=== PATIENT | female | born 1960 | race Caucasian/White ===

== ENCOUNTER 2025-03-14 09:58 | Emergency (ER) | payer MEDICARE, SELFPAY ==
--- NOTE | ~2025-03-14 | XR_ITS ---
HISTORY: injury 3 week COMPARISON: None TECHNIQUE: 3 views of the right foot were performed FINDINGS: No acute fracture or dislocation is appreciated. Mild degenerative disease is noted. The base of the fifth metatarsal is intact. A small calcaneal spur is noted. Ossification of the insertion of the Achilles tendon is present No significant soft tissue swelling is present. IMPRESSION: Degenerative disease without acute fracture. Reviewed, dictated and finalized at location A.
[2025-03-14 10:08] VITALS: BP 150/85; PULSE 73; RESP 18; TEMP 36.3; O2SAT 100
--- OUTSIDE RECORDS SUMMARY | 2025-03-14 10:08 | XMS_ITS | Clinical Summary ---
Author Organization [facility] Address [address] [place] [address] Care Team Providers Care Training And Development Specialist Name Role Phone Mendez Astudillo MD Primary Care Provider + Allergies No known active allergies Medications hydroCHLOROthia zide (HYDRODIURIL) 25 mg tablet Take 1 tablet (25 mg total) by mouth daily Active potassium chloride ER 20 mEq CR tablet Take 1 tablet (20 mEq total) by mouth daily Active amLODIPine (NORVASC) 10 mg tablet Take 1 tablet (10 mg total) by mouth daily Active alendronate (FOSAMAX) 70 mg tablet Take 1 tablet (70 mg total) by mouth every 7 days Take in the morning with a full glass of water, on an empty stomach, and do not take anything else by mouth or lie down for the next 30 min. Active omeprazole 20 mg tablet,delayed release (DR/EC) Take by mouth Active atorvastatin (LIPITOR) 10 mg tablet Take 1 tablet (10 mg total) by mouth daily Active ergocalciferol (VITAMIN D) 50,000 unit capsule Take 1 capsule (50,000 Units total) by mouth once a week Active magnesium glycinate 100 mg tablet Take 350 mg by mouth daily Active Active Problems Problem Noted Date Diagnosed Date Personal history of colonic polyps 04/26/2023 Encounter for screening colonoscopy 04/26/2023 Encounters Date Type Department Care Team Description 12/24/2024 9:40 AM CDT Lab [facility] [address] [place] [address] from Last 3 Months Surgical History Surgery Date Site/Laterality Comments COLONOSCOPY 09/12/2013 - 10/12/2013 COLONOSCOPY 06/03/2023 ABDOMINAL HYSTERECTOMY Medical History Medical History Date Comments Hypertension Hyperlipidemia Family History Medical History Relation Name Comments Cirrhosis Maternal Grandmother Relation Name Status Comments Maternal Grandmother Social History Tobacco Use Types Packs/Day Years Used Date Smoking Tobacco: Never Smokeless Tobacco: Never Tobacco Cessation:Counseling Given: Not Answered Personal Safety Answer Date Recorded Getting School Help Needed Not on file 06/06 Comments Unknown Sex and Gender Information Value Date Recorded Sex Assigned at Not on file Legal Sex Female 2:51 AM DIRECTOR OF ADMISSIONS Gender Identity Not on file Sexual Orientation Not on file Obstetrics History Last Filed Vital Signs Vital Sign Reading Time Taken Comments Blood Pressure 138/75 06/03/2023 9:15 AM CDT Pulse 66 06/03/2023 9:15 AM CDT Temperature 36.8 C (98.3 F) 06/03/2023 9:15 AM CDT Respiratory Rate 16 06/03/2023 9:15 AM CDT Oxygen Saturation 98% 06/03/2023 9:15 AM CDT Inhaled Oxygen Concentration - - Weight 89.4 kg (197 lb) 06/03/2023 7:44 AM CDT Height 165.1 cm (5' 5) 06/03/2023 7:44 AM CDT Body Mass Index 32.78 06/03/2023 7:44 AM CDT Plan of Treatment Health Maintenance Due Date Last Done Comments Depression Screening 1960 Hepatitis C Screening 1960 DTaP/Tdap/Td Vaccine (1 - Tdap) 1969 Hepatitis B Screening 1976 Zoster Vaccine (1 of 2) 2008 Pneumococcal vaccine 65+ (2 of 2 - PPSV23) 07/05/2018 07/05/2017 Well Visit 65+ 2023 Fall Risk Assessment 06/03/2024 06/03/2023 Breast Cancer Screening-Mammogram 07/25/2024 07/25/2023, 07/25/2023, 09/14/2019, Additional history exists Influenza Vaccine (Season Ended) 2025 Osteoporosis Screening-Bone Density Scan 07/25/2025 07/25/2023, 07/25/2023, 09/14/2019, Additional history exists Colon Cancer Screening-Colonoscopy 06/03/2033 06/03/2023, 09/28/2013 Colon Cancer Screening-CT Colonography Discontinued 06/03/2023, 09/28/2013 Colon Cancer Screening-DNA Stool Discontinued 06/03/20, 09/28/2013 Colon Cancer Screening-FIT Discontinued 06/03/2023, Colon Cancer Screening-Sigmoidoscopy Discontinued 06/03/2023, 09/28/2013 Procedures Procedure Name Priority Date/Time Associated Diagnosis Comments EGFR Routine 12/24/2024 9:47 AM CDT URINALYSIS, MICROSCOPIC ONLY Routine 9:47 AM CDT DIFFERENTIAL AUTO Routine 12/24/2024 9:4 7 AM CDT CBC WITH AUTO DIFFERENTIAL Routine 12/24 9:47 AM CDT 1,25 DIHYDROXYCHOLECALCIFEROL Routine 9:47 AM CDT TSH Routine 12/24/2024 9:47 AM CDT MAGNESIUM Routine 12/24/2024 9:47 AM CDT LIPID PANEL Routine 12/24/2024 9:47 AM CDT COMPREHENSIVE METABOLIC PANEL Routine 9:47 AM CDT URINALYSIS AND REFLEX TO MICROSCOPIC AND CULTURE Routine 12/24/2024 9:47 AM CDT COLONOSCOPY 06/03/2023 7:28 AM CDT from Last 3 Months or Most Recently Relevant to Health Maintenance Results * eGFR (12/24/2024 9:47 AM CDT) eGFR >90 >=60 mL/min/1. 73 m2 Comment: Interpretive Data Reference Interval Normal >/= 90 mL/min/1.73m2 Mildly decreased* 60 - 89 mL/min/1.73m2 Mildly to moderately decreased 45 - 59 mL/min/1.73m2 Moderately to severely decreased 30 - 44 mL/min/1.73m2 Severely decreased 15 - 29 mL/min/1.73m2 Kidney Failure < 15 mL/min/1.73m2 *Relative to young adult level Estimated glomerular filtration rate is determined by the 2020 CKD-EPI equation recommended by the National Kidney Foundation (A Unifying Approach to GFR Estimation: Recommendations of the NKF-ASK Task Force on Reassessing the Inclusion of Race in Diagnosing Kidney Disease, JASN 2020). The CKD-EPI equation should not be used for patients with unstable renal function and has not been validated in children and those over 70. Current interpretive data was last reviewed 2021. Testing performed by: [address] [address] Blood 12/24/2024 9:47 AM CDT 12/24/2024 5:51 PM CDT us Mendez Astudillo MD LAB BLOOD ORDERABLES Fin al Result JESUS WEBBER (DOWELL) 1 [facility] [place] [address] * Differential, auto (12/24/2024 9:47 AM CDT) Neutrophil abs 2.92 1.50 - 6.50 K/cumm Comment:Testing performed by : [address] [address] Imm gran abs 0.06 0.00 - 0.10 K/cumm JESUS WEBBER (CHETAN) Comment:Testing performed by : [address] [address] Lymphocyte abs 2.14 0.80 - 3.30 K/cumm JESUS WEBBER (CHETAN) Comment:Testing performed by : [address], [address] Monocyte abs 0.56 0.20 - 0.80 K/cumm JESUS WEBBER (DOWELL) Comment:Testing performed by : [address], [place]., [address] Eosinophil abs 0.13 0.00 - 0.50 K/cumm [facility] ([place]) Comment:Testing performed by : [address] [address] Basophil abs 0.02 0.00 - 0.10 K/cumm [facility] ([place]) Comment:Testing performed by : [address] [address] Neutrophil pct 50.2 % [facility] ([place]) Comment: Interpretive Data Percent cell count reference ranges are not reported, since discordance with absolute values may lead to misinterpretation of CBC data. Current Interpretive Data was last revised on 2017. Testing performed by: [address] [address] Imm gran pct 1.0 % [facility] ([place]) Comment: Interpretive Data Percent cell count reference ranges are not reported, since discordance with absolute values may lead to misinterpretation of CBC data. Current Interpretive Data was last revised on 2017. Testing performed by: [address] [address] Lymphocyte pct 36.7 % [facility] ([place]) Comment: Interpretive Data Percent cell count reference ranges are not reported, since discordance with absolute values may lead to misinterpretation of CBC data. Current Interpretive Data was last revised on 2017. Testing performed by: [address] [address] Monocyte pct 9.6 % [facility] ([place]) Comment: Interpretive Data Percent cell count reference ranges are not reported, since discordance with absolute values may lead to misinterpretation of CBC data. Current Interpretive Data was last revised on 2017. Testing performed by: [address] [address] Eosinophil pct 2.2 % [facility] ([place]) Comment: Interpretive Data Percent cell count reference ranges are not reported, since discordance with absolute values may lead to misinterpretation of CBC data. Current Interpretive Data was last revised on 2017. Testing performed by: [address] [address] Basophil pct 0.3 % JESUS WEBBER (CHETAN) Comment: Interpretive Data Percent cell count reference ranges are not reported, since discordance with absolute values may lead to misinterpretation of CBC data. Current Interpretive Data was last revised on 2017. Testing performed by: [facility], [address] [place] [address]., [address] Blood 12/24/2024 9:47 AM CDT 12/24/2024 1:51 PM CDT us Mendez Astudillo MD LAB BLOOD ORDERABLES Fin al Result JESUS WEBBER (CHETAN) 1 [facility] Department [place] [address] * (ABNORMAL) Urinalysis reflex to microscopic and culture Urine, clean voided (12/24/2024 9:47 AM CDT) Color, ur Yellow Yellow Comment:Testing performed by : [address] [address] Clarity, ur Clear Clear JESUS VASQUEZ (DOWELL) Comment:Testing performed by : [address] [address] Specific gravity, ur 1.011 1.003 - 1.030 JESUS WEBBER (CHETAN) Comment:Testing performed by : [address] [address] pH, urine 7.0 JESUS WEBBER (CHETAN) Comment: Interpretive Data U rine pH is affected by diet, medications, systemic acid-base disturbances, and renal tubular function. pH may affect urinary stone formation. For example, urine pH below 6.0 may help reduce the tendency for calcium phosphate stones and pH greater than 6.0 may reduce the tendency for uric acid stone formation. Source: [facility] [place] Current Interpretive Data was last revised on 2017 Testing performed by: [address] [address] Protein, ur ql Negative Negative LIDIANE R ABKAR (CHETAN) Comment:Testing performed by : [address] [address] Glucose, ur ql Negative Negative CERNE R AKBAR ([place]) Comment:Testing performed by : [facility], [address] [place] [address]., [address] Ketones, ur Negative Negative CERNER A (CHETAN) Comment:Testing performed by : [facility], [address] [place] [address]., [address] Bilirubin, ur Negative Negative [facility] ([place]) Comment:Testing performed by : [facility], [address] [place] [address]., [address] Blood, ur 2+(A) Negative [facility] ([place]) Comment:Testing performed by : [address] [address] Urobilinogen, ur <2.0 <2.0 mg/dL JESUS WEBBER (CHETAN) Comment:Testing performed by : [facility], [address] [place] [address], [address] Nitrite, ur Negative Negative JESUS A (CHETAN) Comment:Testing performed by : [address], [address] Leukocyte esterase, ur Negative Negative JESUS WEBBER (CHETAN) Comment:Testing performed by : [address], [address] UA reflex comment Reflex to microscopic UA will be performed. JESUS WEBBER (CHETAN) Comment:Testing performed by : [address], [address] Urine, clean voided 12/24/2024 9:47 AM CDT 12/24/2024 1:51 PM CDT us Mendez Astudillo MD LAB MICROBIOLOGY - GENER AL ORDERABLES Final Result JESUS WEBBER ([place]TAN) 1 [facility] [place] [address] * (ABNORMAL) CBC with auto differential (12/24/2024 9:47 AM CDT) WBC 5.83 3.80 - 9.90 K/cumm Comment:Testing performed by : [address], [address] Hgb 15.0 11.9 - 15.5 g/dL [facility] ([place]) Comment:Testing performed by : [address], [address] Hct 46.6(H) 35.6 - 45.5 % [facility] ([place]) Comment:Testing performed by : [address], [address] Plt 263 150 - 400 K/cumm [facility] ([place]) Comment:Testing performed by : [address], [address] MPV 10.5 9.1 - 12.3 fL [facility] ([place]) Comment:Testing performed by : [address], [address] RBC 5.20 3.90 - 5.20 M/cumm [facility] ([place]) Comment:Testing performed by : [address], [address] MCV 89.6 81.3 - 96.4 fL [facility] ([place]) Comment:Testing performed by : [address], [address] MCH 28.8 27.1 - 33.3 pg [facility] ([place]) Comment:Testing performed by : [address], [address] MCHC 32.2(L) 32.3 - 35.7 g/dL [facility] ([place]) Comment:Testing performed by : [address], [address] RDW CV 12.5 11.1 - 14.9 % [facility] ([place]) Comment:Testing performed by : [address], [address] RDW SD 41.0 35.7 - 48.1 fL [facility] ([place]) Comment:Testing performed by : [address], [address] NRBC abs 0.00 0.00 - 0.01 K/cumm [facility] ([place]) Comment:Testing performed by : [address], [address] Blood 12/24/2024 9:47 AM CDT 12/24/2024 1:51 PM CDT Mendez Astudillo MD LAB BLOOD ORDERABLES Fin al Result Performing Organization Address [facility] de Phone Number JESUS WEBBER (DOWELL) [address] [facility] [place] [address] * 1,25 Dihydroxycholecalciferol (12/24/2024 9:47 AM CDT) Pathologist [facility] 1-25-di-OH Vit D 25 18 - 78 pg/mL [place] [facility] Comment: ADDITIONAL INFORMATION This test was developed and its performance characteristics determined by [facility] in a manner consistent with CLIA requirements. This test has not been cleared or approved by the U.S. Food and Drug Administration. Test Performed by: [facility] - [address] [address] Paginator: Toña Lovelace Ph.D.; CLIA# [id number] Testing performed by: [facility], [address] [place] [address]., [address] Blood 12/24/2024 9:47 AM CDT 12/24/2024 1:51 PM CDT Mendez Astudillo MD LAB BLOOD ORDERABLES Fin al Result Performing Organization Address City/[facility] Co de Phone Number JESUS WEBBER (DOWELL) [address] [facility] [place] [address] [place] ref [facility] * (ABNORMAL) Urinalysis, microscopic only (12/24/2024 9:47 AM CDT) [facility] WBC, ur 0-5 0 - 5 /HPF Comment:Testing performed by : [facility], [address] [place] [address]., [address] RBC, ur 21-50(A) 0 - 2 /HPF JESUS WEBBER (DOWELL) Comment:Testing performed by : [facility] [address] [place] [address]., [address] Epithelial cells, squamous, ur 1-5 0 - 5 /HPF JESUS WEBBER (CHETAN) Comment:Testing performed by : [facility], [address] [place] [address]., [address] Mucous, ur Present(A) JESUS Natarajan (CHETAN) Comment:Testing performed by : [facility], [address] [place] [address], [address] Culture Reflex Comment Reflex conditions for urine culture (WBC >10) not met. JESUS WEBBER (CHETAN) Comment:Testing performed by : [facility], [address] [place] [address], [address] Urine, clean voided 12/24/2024 9:47 AM CDT 12/24/2024 1:51 PM CDT Mendez Astudillo MD LAB URINE ORDERABLES Fin al Result Performing Organization Address City/[facility]/ZIP Co de Phone Number JESUS WEBBER (DOWELL) 1 [facility] [place] [address] * TSH (12/24/2024 9:47 AM CDT) Thyroid Stimulating Hormone 2.29 0.30 - 4.20 mcIUnit/mL Comment:Testing performed by : [address], [address] Blood 12/24/2024 9:47 AM CDT 12/24/2024 1:51 PM CDT Mendez Astudillo MD LAB BLOOD ORDERABLES Fin al Result JESUS WEBBER (DOWELL) 1 [facility] [place] [address] * Magnesium (12/24/2024 9:47 AM CDT) Magnesium 2.3 1.4 - 2.5 mg/dL Comment:Testing performed by : [address], [address] Blood 12/24/2024 9:47 AM CDT 12/24/2024 1:51 PM CDT us Mendez Astudillo MD LAB BLOOD ORDERABLES Fin al Result JESUS AKBAR (CHETAN) 1 [facility] [place] [address] * (ABNORMAL) Lipid panel (12/24/2024 9:47 AM CDT) Cholesterol 223(H) 30 - 199 mg/dL Comment: Interpretive Data Ages < or = 19 years Acceptable: <170 mg/dL Borderline high: 170-199 mg/dL High: >or= 200 mg/dL Ages > or = 20 years Desirable: <200 mg/dL Borderline high: 200-239 mg/dL High: >or= 240 mg/dL Literature References: 1. Expert Panel on Integrated Guidelines for Cardiovascular Health and Risk Reduction in Children and Adolescents. Pediatrics 2011;128:S213 2. NCEP Expert Panel. Circulation 2004;110:227 Current Interpretive Data was last revised on 2018. Testing performed by: [facility], [address] [place] [address]., [address] Triglycerides 93 <=149 mg/dL JESUS WEBBER (CHETAN) Comment: Interpretive Data Ages < or = 9 years Acceptable: <75 mg/dL Borderline high: 75-99 mg/dL High: >or= 100 mg/dL Ages 10 to 20 years Acceptable: <90 mg/dL Borderline high: 90-129 mg/dL High: >or= 130 mg/dL Ages > or = 20 years Desirable: <150 mg/dL Borderline high: 150-199 mg/dL High: 200-499 mg/dL Very high: >or= 499 mg/dL Literature References: 1. Expert Panel on Integrated Guidelines for Cardiovascular Health and Risk Reduction in Children and Adolescents. Pediatrics 2011;128:S213 2. NCEP Expert Panel. Circulation 2004;110:227 Current Interpretive Data was last revised on 2018. Testing performed by: [facility], [address] [place] [address]., [address] HDL 70 >=40 mg/dL JESUS WEBBER (CHETAN) Comment: Interpretive Data Ages < or = 19 years Acceptable: >45 mg/dL Borderline low: 40-45 mg/dL Low: <40 mg/dL Ages > or = 20 years Desirable: >or= 60 mg/dL Low: <40 mg/dL Literature References: 1. Expert Panel on Integrated Guidelines for Cardiovascular Health and Risk Reduction in Children and Adolescents. Pediatrics 2011;128:S213 2. NCEP Expert Panel. Circulation 2004;110:227 Current Interpretive Data was last revised on 2018. Testing performed by: [facility], [address] [place] [address]., [address] LDL, calculated 137(H) <=129 mg/dL JESUS WEBBER (CHETAN) Comment: Interpretive Data Ages < or = 19 years Acceptable: <110 mg/dL Borderline high: 110-129 mg/dL High: >or= 130 mg/dL Ages > or = 20 years Optimal: <100 mg/dL Near optimal: 100-129 mg/dL Borderline high: 130-159 mg/dL High: >160 mg/dL Calculated using the Tyrel LDL-C estimating equation. This equation was implemented on 2024. Prior to this date LDL-C was estimated using the Friedewald equation. Literature References: 1. Expert Panel on Integrated Guidelines for Cardiovascular Health and Risk Reduction in Children and Adolescents. Pediatrics 2011;128:S213 2. NCEP Expert Panel. Circulation 2004;110:227 3. Tyrel Whiting et al. FERN Cardiol. 2020 January 10;5(5):540-548. doi: 10.1001/jamacardio.2020.0013 Current Interpretive Data was last revised on 2024. Testing performed by: [facility], [address] [place] [address]., [address] Non-HDL Cholesterol 153 mg/dL JESUS WEBBER (CHETAN) Comment: Interpretive Data Ages < or = 19 years Acceptable: <120 mg/dL Borderline high: 120-144 mg/dL High: >145 mg/dL Ages > or = 20 years When triglycerides are >200 mg/dL, Non-HDL cholesterol is a secondary target of therapy with treatment goals that are 30 mg/dL greater than the LDL cholesterol target. Literature References: 1. Expert Panel on Integrated Guidelines for Cardiovascular Health and Risk Reduction in Children and Adolescents. Pediatrics 2011;128:S213 2. NCEP Expert Panel. Circulation 2004;110:227 Current Interpretive Data was last revised on 2018. Testing performed by: [facility], [address] [place] [address]., [address] Chol/HDL ratio 3 [facility] ([place]) Comment:Testing performed by : [address] [address] Blood 12/24/2024 9:47 AM CDT 12/24/2024 1:51 PM CDT us Mendez Astudillo MD LAB BLOOD ORDERABLES Fin al Result JESUS WEBBER (CHETAN) 1 [facility] [place] [address] * Comprehensive metabolic panel (12/24/2024 9:47 AM CDT) Sodium 142 135 - 145 mmol/L Comment:Testing performed by : [address], [address] Potassium, pl 4.0 3.3 - 4.9 mmol/L [facility] ([place]) Comment:Testing performed by : [address], [address] Chloride 104 97 - 110 mmol/L [facility] ([place]) Comment:Testing performed by : [address], [address] CO2 27 22 - 32 mmol/L [facility] ([place]) Comment:Testing performed by : [address], [address] Anion gap 11 2 - 15 mmol/L [facility] ([place]) Comment:Testing performed by : [address], [address] BUN 12 6 - 25 mg/dL [facility] ([place]) Comment:Testing performed by : [address], [address] Creatinine 0.60 0.60 - 1.10 mg/dL [facility] ([place]) Comment:Testing performed by : [facility], [address], [place]., [address] Glucose 88 70 - 199 mg/dL [facility] ([place]) Comment: Interpretive Data Fasting glucose >/= 126 mg/dl is diagnostic for diabetes. Fasting is defined as no caloric intake for at least 8 hours. Fasting glucose between 100 mg/dl to 125 mg/dl is diagnostic of prediabetes. In a patient with classic symptoms of hyperglycemia or hyperglycemic crisis, a random glucose >/= 200 mg/dl is diagnostic for diabetes. In the absence of unequivocal hyperglycemia, results should be confirmed by repeat testing. The classification and Diagnosis of Diabetes Diabetes Care 2021; 46: S19-S40. Current interpretive data was last revised 2022. Testing performed by: [facility], [address] [place] [address], [address] Calcium 9.4 8.5 - 10.3 mg/dL [facility] ([place]) Comment:Testing performed by : [address], [address] Bilirubin, total 0.3 0.1 - 1.2 mg/dL [facility] ([place]) Comment:Testing performed by : [address], [address] Protein, pl 7.4 6.5 - 8.5 g/dL [facility] ([place]) Comment:Testing performed by : [address], [address] Albumin 4.3 3.5 - 5.0 g/dL [facility] ([place]) Comment:Testing performed by : [address], [address] Alk phos 62 40 - 130 Units/L [facility] ([place]) Comment:Testing performed by : [address], [address] ALT 20 7 - 45 Units/L [facility] ([place]) Comment:Testing performed by : [address], [address] AST 29 10 - 45 Units/L [facility] ([place]) Comment:Testing performed by : [address], [address] Blood 12/24/2024 9:47 AM CDT 12/24/2024 1:51 PM CDT us Mendez Astudillo MD LAB BLOOD ORDERABLES Fin al Result JESUS WEBBER CHE[place]) 1 [facility] [place] [address] * COLONOSCOPY (06/03/2023 7:28 AM CDT) Anatomical Region Laterality Modality Other Narrative Procedure Note Arnel Lopez MD - 06/03/2023 7:28 AM CDT [facility] Patient Name: Ivelisse Rahman Procedure Date: 06/03/2023 7:28 AM Date of : 1960 Admit Type: Outpatient Age: 63 Gender: Female Attending MD: Arnel Lopez M.D. Room: [facility] ENDOSCOPY ROOM 2 Note Status: Finalized Patient Profile: Refer to note in patient chart for documentation of history and physical. Procedure: Colonoscopy Indications: High risk colon cancer surveillance: Personalhistory of colonic polyps, Last colonoscopy: September 2013 Referring MD: Mendez Astudillo M.D. Providers: Arnel Lopez M.D. Impression: - Hemorrhoids found on perianal exam. - Diverticulosis in the sigmoid colon. - The examination was otherwise normal. - No specimens collected. Recommendation: - Discharge patient to home. - Resume previous diet. - Continue present medications. - Repeat colonoscopy in 5 years for surveillance. - Return to primary care physician as previously scheduled. Medicines: Propofol per Anesthesia Complications: No immediate complications. Estimated Blood Loss: Estimated blood loss: none. Procedure: Pre-Anesthesia Assessment: - This assessment was completed [Time ofAssessment] prior to the administration of sedation. The benefits, risks and alternatives of theprocedure and sedation were discussed and informed consentwas obtained. All questions were answered. Please referto the signed informed consent document in the medical record. The bowel preparation used was Miralax via single dose instruction. The bowel preparation used was bisacodyl tablets via single dose instruction.The scope was passed under direct vision. TheColonoscope [id number] was introduced through the anus and advanced to the the cecum, identified by appendiceal orifice and ileocecal valve. The colonoscopy was performed without difficulty. The patient tolerated the procedure well. The qualityof the bowel preparation was good. The ileocecalvalve, appendiceal orifice, and rectum werephotographed. Findings: Hemorrhoids were found on perianal exam. Multiple small and large-mouthed diverticula were found in thesigmoid colon. The exam was otherwise without abnormality. Electronically signed by Arnel Lopez M.D. Arnel Lopez M.D. 06/03/2023 8:46:44 AM Number of Addenda: 0 Note Initiated On: 06/03/2023 7:28 AM Procedure Code(s): --- Professional --- G0105, Colorectal cancer screening; colonoscopy on individual at high risk --- Technical --- G0105, Colorectal cancer screening; colonoscopy on individual at high risk Diagnosis Code(s): --- Professional --- K57.30, Diverticulosis of large intestine without perforation orabscess without bleeding K64.9, Unspecified hemorrhoids Z86.010, Personal history of colonic polyps --- Technical --- K57.30, Diverticulosis of large intestine without perforation orabscess without bleeding K64.9, Unspecified hemorrhoids Z86.010, Personal history of colonic polyps CPT copyright 2020 [employer]. All rights reserved. The codes documented in this report are preliminary and upon civil engineering professor reviewmay be revised to meet current compliance requirements. Recognized by the [employer] [place] [employer] for promoting quality in endoscopy Arnel Lopez MD ENDOSCOPY PROCEDURES Final Re sult from Last 3 Months or Most Recently Relevant to Health Maintenance Insurance [facility] [employer] Advance Directives For more information, please contact: [phone] * Full Code (Latest Code Status on File) Date Activated Date Inactivated Comments 06/03/2023 7:30 AM 06/03/2023 1:39 PM * Full Code Date Activated Date Inactivated Comments 06/03/2023 7:30 AM 06/03/2023 7:30 AM Care Teams Training And Development Specialist Relationship Specialty Start [place] [id number] [facility] [place] [address] PCP - General 02/25/17
--- OUTSIDE RECORDS SUMMARY | 2025-03-14 10:09 | XMS_ITS | Clinical Summary ---
Author Organization [facility] Address [address] [place] [address] Phone Care Team Providers Care Clerk Manager Name Role Phone Mendez Interiano MD Primary Care Provider [phone] Allergies No known active allergies Medications alendronate (FOSAMAX) 70 MG Tablet TAKE 1 TABLET BY MOUTH ONCE WEEKLY 02/24/2023 Active ergocalciferol (VITAMIN D) 65437 UNIT Capsule TAKE 1 CAPSULE BY MOUTH EVERY 1 WEEK 03/28/2023 Active potassium chloride SA (KLORCON M) 20 MEQ Tablet Controlled Release TAKE 2 TABLETS BY MOUTH TWICE DAILY 02/24/2023 Active omeprazole (PriLOSEC) 20 MG CAPSULE DELAYED RELEASE Take 20 mg by mouth daily. 03/28/2023 Active atorvastatin (LIPITOR) 10 MG Tablet Take 10 mg by mouth daily. 03/28/2023 Active amLODIPine (NORVASC) 10 MG Tablet Take 10 mg by mouth daily. 03/28/2023 Active Encounters Date Type Department Care Team Description 03/07/2025 1:08 PM CDT - 03/07/2025 4:35 PM CDT [facility] [address] [place] [address] Diogo Ames, PAC Chest pain Discharge Disposition: Discharged to home or Selfcare 03/07/2025 Travel 12/27/2024 Transcribe Orders [facility] [address] [place] [address] [place] [address] Joann Mac MD Visit for screening mammogram (Primary Dx) from Last 3 Months Social History Tobacco Use Types Packs/Day Years Used Date Smoking Tobacco: Former Cigarettes Q uit: 1998 Smokeless Tobacco: Never Tobacco Cessation:Counseling Given: Not Answered Alcohol Use Standard Drinks/Week Comments Not Currently 0 (1 standard drink = 0.6 oz pur e alcohol) Comments No Sex and Gender Information Value Date Recorded Sex Assigned at Female 04/25/2023 2:29 PM CDT Legal Sex Female 11:46 PM CDT Gender Identity Female 04/25/2023 2:29 PM CDT Sexual Orientation Not on file Last Filed Vital Signs Vital Sign Reading Time Taken Comments Blood Pressure 139/76 03/07/2025 4:15 PM CDT Pulse 65 03/07/2025 4:30 PM CDT Temperature 37 C (98.6 F) 03/07/2025 1:22 PM CDT Respiratory Rate 17 03/07/2025 4:30 PM CDT Oxygen Saturation 97% 03/07/2025 4:30 PM CDT Inhaled Oxygen Concentration - - Weight 83.9 kg (185 lb) 03/07/2025 1:22 PM CDT Height 167.6 cm (5' 6) 03/07/2025 1:22 PM CDT Body Mass Index 29.86 03/07/2025 1:22 PM CDT Plan of Treatment Health Maintenance Due Date Last Done Comments Hepatitis C Virus (HCV) Screening 1960 TdaP Immunization 1960 Cologuard 2003 Immunochemical Fecal Occult Blood 2003 SARS-COV-2 Immunization ( season) 2024 Mammogram 07/25/2024 07/25/2023, 11/2019, 09/03/2016, Additional history exists Influenza Immunization (#1) 2025 DEXA Bone Density 07/25/2025 07/25/2023, 09/14/2019 Respiratory Syncytial Virus (RSV) Immunization (Adult) (1 - 1-dose 75+ series) 2033 Colonoscopy 06/03/2033 06/03/2023 Colorectal Cancer Screening 06/03/2033 Pneumococcal Immunization (50+ years) Completed 07/05/2023, 07/05/2017 Pneumococcal Immunization Combined Discontinued 07/05/2023, 07/05/2017 Zoster Immunization Completed 09/02/2023, Hepatitis B Immunization Aged Out No longer eligible based on patient's age to complete this topic Human Papillomavirus (HPV) Immunization Aged Out No longer eligible based on patient's age to complete this topic Meningococcal Immunization (ACWY) Aged Out No longer eligible based on patient's age to complete this topic Rotavirus Immunization Aged Out No lo nger eligible based on patient's age to complete this topic Procedures Procedure Name Priority Date/Time Associated Diagnosis Comments TROPONIN I, HIGH SENSITIVITY (HSTRP) STAT 03/07/2025 3:42 PM CDT URINALYSIS REFLEX IF INDICATED BY ABNORMAL RESULTS STAT 03/07/2025 2:22 PM CDT XR CHEST 2 VIEWS STAT 03/07/2025 1:56 PM CDT GOLD TOP TUBE STAT 03/07/2025 1:34 PM CDT CBC WITH AUTO DIFFERENTIAL STAT 03/07/2025 1:34 PM CDT EXTRA TUBES STAT 03/07/2025 1:34 PM CDT APTT (PTT) STAT 03/07/2025 1:34 PM CDT PROTIME (PT) (PROTHROMBIN TIME) STAT 03/07/2025 1:34 PM CDT N-TERMINAL- PRO B TYPE NATRIURETIC PEPTIDE STAT 03/07/2025 1:34 PM CDT TROPONIN I, HIGH SENSITIVITY (HSTRP) STAT 03/07/2025 1:34 PM CDT MAGNESIUM (MG) STAT 03/07/2025 1:34 PM CDT CMP (COMPREHENSIVE METABOLIC PANEL) STAT 03/07/2025 1:34 PM CDT COMPLETE BLOOD COUNT (CBC) WITH DIFF STAT 03/07/2025 1:34 PM CDT EKG 12 LEAD STAT 03/07/2025 1:09 PM CDT EKG SCAN 03/07/2025 12:00 AM CDT [facility] BONE DENSITOMETRY AXIAL SKELETON Routine 07/25/2023 9:31 AM SENIOR ATTORNEY Osteoporosis, unspecified osteoporosis type, unspecified pathological fracture presence [facility] SCREENING BILATERAL DIGITAL W CAD W MAIRA Routine 07/25/2023 9:12 AM SENIOR ATTORNEY Encounter for screening mammogram for malignant neoplasm of breast from Last 3 Months or Most Recently Relevant to Health Maintenance Results * TROPONIN I, HIGH SENSITIVITY (HSTRP) (03/07/2025 3:42 PM CDT) Only the most recent of2 resultswithin the time period is included. [facility] TROPONIN I, HIGH SENSITIVITY- ARELLANO <3 <=14 ng/L 03/07/2025 4:06 PM CDT [facility] Comment: High-sensitivity troponin I results are reported in ng/L making the result appear to be 1,000 times higher than the contemporary troponin I value which is reported in ng/ml. Results from [place]. Blood Venipuncture / Unknown 03/07/2025 3:42 PM CDT 03/07/2025 3:42 PM CDT us Diogo Ames PAC CHEMISTRY ORDERABLES Final Result [facility] [address] [place] [address] * (ABNORMAL) Urinalysis w/ Reflex (03/07/2025 2:22 PM CDT) [facility] SPECIFIC GRAVITY 1.005 1.003 - 1.030 03/07/2025 3:10 PM CDT [facility] URINE PH 6.0 5.0 - 9.0 03/07/2025 3:10 PM CDT [facility] WBC ESTERASE 25 /ul(A) Negative 03/07/2025 3:10 PM CDT [facility] NITRITE Negative Negative 03/07/2025 3:10 PM CDT [facility] PROTEIN, RANDOM URINE Negative Negative 03/07/2025 3:10 PM CDT [facility] URINE GLUCOSE, QUAL Negative Negative 03/07/2025 3:10 PM CDT [facility] URINE KETONES Negative Negative 03/07/2025 3:10 PM CDT [facility] UROBILINOGEN Normal Normal mg/dL 03/07/2025 3:10 PM CDT [facility] URINE BLOOD Negative Negative robb/ul 03/07/2025 3:10 PM CDT [facility] URINALYSIS COLOR Yellow 03/07/20 3:10 PM CDT [facility] URINALYSIS CLARITY Clear 03/07/2025 3:10 PM CDT [facility] WBC (Urine) 0-5 Negative, 0-5 /hpf 03/07/2025 3:10 PM CDT [facility] URINE RBC'S 0-2 Negative, 0-2 /hpf 03/07/2025 3:10 PM CDT [facility] EPITHELIAL CELLS Occasional /lpf 03/07/20 3:10 PM CDT [facility] BACTERIA, URINE Negative Negative /hpf 03/07/2025 3:10 PM CDT [facility] Urine URINE SPECIMEN / Unknown Non-Phlebotomy Collection / Unknown 03/07/2025 2:22 PM CDT 03/07/2025 2:30 PM CDT Narrative [facility] - 03/07/2025 3:10 PM CDT Few Renal epithelial cells present Diogo Ames PAC URINE ORDERABLES Fin al Result [facility] [address] [facility] [place] [address] * XR CHEST 2 VIEWS (03/07/2025 1:56 PM CDT) Anatomical Region Laterality Modality Chest N/A Digital Radiogra phy 03/07/2025 2:14 PM CDT Impressions 03/07/2025 2:17 PM CDT IMPRESSION: 1. Opacity at medial right lung base, thought to be right middle lobe, appears similar to that seen on the prior study and likely represents scarring; however, 3 month follow-up PA and lateral chest radiographs are recommended for additional evaluation. Of course, CT is another option. 2. Otherwise, no focal infiltrates or effusions. 3. Heart upper limits of normal in size. Narrative 03/07/2025 2:17 PM CDT EXAM DESCRIPTION: XR CHEST 2 VIEWS REASON FOR STUDY: CP- shortness of breath, left shoulder pain, shooting pain into left side of neck today which have all now resolved- HX HTN, ex smoker TECHNIQUE: PA and lateral radiographic view(s) of the chest. COMPARISON: April 25, 2023 FINDINGS: LUNGS: Opacity at medial right lung base, thought to be right middle lobe, appears similar to that seen on the prior study and likely represents scarring; however, 3 month follow-up PA and lateral chest radiographs are recommended for additional evaluation. Otherwise, no focal opacity, pleural effusion, or pneumothorax. HEART/MEDIASTINUM: Heart is upper limits of normal in size. Thoracic aorta is mildly tortuous. LINES/TUBES: None. BONES: Mild multilevel thoracic spondylosis. No acute osseous abnormality. THIS IS AN ELECTRONICALLY VERIFIED FINAL REPORT 03/07/2025 2:14 PM - Electronically signed by Cristian Oliveira M.D. RB: JOSE Report ID: [id number] Reading Location: [place] [address] Procedure Note Cristian Oliveira MD - 03/07/2025 EXAM DESCRIPTION: XR CHEST 2 VIEWS REASON FOR STUDY: CP- shortness of breath, left shoulder pain, shooting pain into left side of neck today which have all now resolved- HX HTN, ex smoker TECHNIQUE: PA and lateral radiographic view(s) of the chest. COMPARISON: April 25, 2023 FINDINGS: LUNGS: Opacity at medial right lung base, thought to be right middle lobe, appears similar to that seen on the prior study and likely represents scarring; however, 3 month follow-up PA and lateral chest radiographs are recommended for additional evaluation. Otherwise, no focal opacity, pleural effusion, or pneumothorax. HEART/MEDIASTINUM: Heart is upper limits of normal in size. Thoracic aorta is mildly tortuous. LINES/TUBES: None. BONES: Mild multilevel thoracic spondylosis. No acute osseous abnormality. THIS IS AN ELECTRONICALLY VERIFIED FINAL REPORT 03/07/2025 2:14 PM - Electronically signed by Cristian Oliveira M.D. RB: JOSE Report ID: [id number] Reading Location: [place] [address] IMPRESSION: 1. Opacity at medial right lung base, thought to be right middle lobe, appears similar to that seen on the prior study and likely represents scarring; however, 3 month follow-up PA and lateral chest radiographs are recommended for additional evaluation. Of course, CT is another option. 2. Otherwise, no focal infiltrates or effusions. 3. Heart upper limits of normal in size. Diogo Ames PAC IMG DIAGNOSTIC ORDER ANDRE Final Result * NT-proBNP (03/07/2025 1:34 PM CDT) NT PROBNP 92.8 <450.0 pg/mL 03/07/2025 2:08 PM CDT [facility] Comment: AGE pg/mL INTERPRETATION All <300 Negative: HF (Heart Failure) unlikely 18 to <50 >=300.0 to <450.0 Indeterminate. Consider other causes of NT-proBNP elevation 50 to 75 >=300.0 to <900.0 Indeterminate. Consider other causes of NT-proBNP elevation >75 >=300.0 to <1800.0 Indeterminate. Consider other causes of NT-proBNP elevation 18 to <50 >=450.0 Positive: HF likely 50 to 75 >=900.0 Positive: HF likely >75 >=1800.0 Positive: HF likely Total protein levels at or above 12.6 mg/dl may falsely decrease NT-proBNP values. Blood Venipuncture / Unknown 03/07/2025 1:34 PM CDT 03/07/2025 1:42 PM CDT Diogo Ames PAC CHEMISTRY ORDERABLES Final Result Performing Organization Address City/[facility] Co de Phone Number [facility] [address] [place] [address] * Gold Top Tube (03/07/2025 1:34 PM CDT) Blood No Phlebotomy Charged / Unknown 03/07/2025 1:34 PM CDT 03/07/2025 1:43 PM CDT Diogo Ames PAC CHEMISTRY ORDERABLES Final Result Performing Organization Address [facility] de Phone Number [facility] [address] [place] [address] * (ABNORMAL) CBC with Auto Differential (03/07/2025 1:34 PM CDT) WBC 5.26 4.00 - 12.00 10(3)/mcL 03/07/2025 1:52 PM CDT [facility] RBC 5.21 3.80 - 5.30 10(6)/mcL 03/07/2025 1:52 PM CDT [facility] HEMOGLOBIN (HGB) 14.9 12.0 - 15.8 g/dL 03/07/2025 1:52 PM CDT [facility] HEMATOCRIT (HCT) 45.4 36.0 - 47.0 % 03/07/2025 1:52 PM CDT [facility] MCV 87.1 82.0 - 96.0 fL 03/07/2025 1:52 PM CDT [facility] MCH 28.6 26.0 - 34.0 pg 03/07/2025 1:52 PM CDT [facility] MCHC 32.8 31.0 - 36.0 g/dL 03/07/2025 1:52 PM CDT [facility] PLATELET COUNT 262 140 - 440 10(3)/mcL 03/07/2025 1:52 PM CDT [facility] RDW 12.2 11.8 - 15.5 % 03/07/2025 1:52 PM CDT [facility] MPV 10.4 9.7 - 12.4 fL 03/07/2025 1:52 PM CDT [facility] NEUTROPHILS 65.7 47.0 - 73.0 % 03/07/2025 1:52 PM CDT [facility] LYMPHOCYTES 24.7 18.0 - 42.0 % 03/07/2025 1:52 PM CDT [facility] MONOCYTES 8.4 4.0 - 12.0 % 03/07/2025 1:52 PM CDT [facility] EOSINOPHILS 0.4 0.0 - 5.0 % 03/07/2025 1:52 PM CDT [facility] BASOPHILS 0.2 0.0 - 1.0 % 03/07/2025 1:52 PM CDT [facility] IMMATURE GRANULOCYTE 0.6(H) 0.0 - 0.4 % 03/07/2025 1:52 PM CDT [facility] Comment:Immature Granulocyte s includes Metamyelocytes, Myelocytes, and Promyelocytes. ABSOLUTE NEUTROPHILS 3.46 1.60 - 7.70 10(3)/mcL 03/07/2025 1:52 PM CDT [facility] ABSOLUTE LYMPHOCYTES 1.30 1.30 - 3.20 10(3)/mcL 03/07/2025 1:52 PM CDT [facility] ABSOLUTE MONOCYTES 0.44 0.20 - 1.00 10(3)/mcL 03/07/2025 1:52 PM CDT [facility] ABSOLUTE EOSINOPHIL 0.02 0.00 - 0.40 10(3)/mcL 03/07/2025 1:52 PM CDT [facility] ABSOLUTE BASOPHILS 0.01 0.00 - 0.10 10(3)/mcL 03/07/2025 1:52 PM CDT [facility] ABSOLUTE IMMATURE GRANULOCYTE 0.03 0.00 - 0.03 10 (3) mcL. 03/07/2025 1:52 PM CDT [facility] NRBC PER 100 WBC 0 03/07/20 1:52 PM CDT [facility] Blood Venipuncture / Unknown 03/07/2025 1:34 PM CDT 03/07/2025 1:42 PM CDT Diogo Ames PAC HEMATOLOGY ORDERABLE S Final Result Performing Organization Address City/[facility]/ZIP Co de Phone Number [facility] [address] [place] [address] * PTT (03/07/2025 1:34 PM CDT) [facility] PTT 26 24 - 36 sec 03/07/2025 1:58 PM CDT [facility] Blood Venipuncture / Unknown 03/07/2025 1:34 PM CDT 03/07/2025 1:42 PM CDT Narrative [facility] - 03/07/2025 1:58 PM CDT Therapeutic range for unfractionated heparin at 0.3-0.7 U/mL is an aPTT value in the range of 71-100 seconds. Critical value for the PTT test is >= 122 seconds. us Diogo Ames PAC HEMATOLOGY ORDERABLE S Final Result Performing Organization Address City/[facility]/ZIP Co de Phone Number [facility] [address] [place] [address] * PT / INR (03/07/2025 1:34 PM CDT) Pathologist [facility] PROTIME-PATIENT 13.3 11.6 - 14.8 sec 03/07/2025 1:58 PM CDT [facility] INR 1.0 0.9 - 1.2 03/07/2025 1:58 PM CDT [facility] Comment: Therapeutic Ranges INR = 2.0-3.0: Venous thromb, atrial fib, pul embolism, tissue heart valve, ami. INR = 2.5-3.5: Mechanical heart valve Critical value for INR is >/= 4.5 Blood Venipuncture / Unknown 03/07/2025 1:34 PM CDT 03/07/2025 1:42 PM CDT Diogo Ames PAC HEMATOLOGY ORDERABLE S Final Result Performing Organization Address City/[facility]/ZIP Co de Phone Number [facility] [address] [place] [address] * Magnesium (03/07/2025 1:34 PM CDT) [facility] MAGNESIUM 2.1 1.6 - 2.6 mg/dL 03/07/2025 2:05 PM CDT [facility] Blood Venipuncture / Unknown 03/07/2025 1:34 PM CDT 03/07/2025 1:42 PM CDT Diogo Ames PAC CHEMISTRY ORDERABLES Final Result Performing Organization Address City/[facility]/ZIP Co de Phone Number [facility] [address] [place] [address] * (ABNORMAL) CMP (03/07/2025 1:34 PM CDT) [facility] SODIUM 139 136 - 145 mmol/L 03/07/2025 2:05 PM CDT [facility] POTASSIUM 3.9 3.5 - 5.1 mmol/L 03/07/2025 2:05 PM CDT [facility] CHLORIDE 107 98 - 107 mmol/L 03/07/2025 2:[address] [facility] CO2, VENOUS 25 22 - 30 mmol/L 03/07/2025 2:[address] [facility] ANION GAP 10.9 <18.0 mmol/L 03/07/2025 2:[address] [facility] GLUCOSE 99 70 - 99 mg/dL 03/07/2025 2:[address] [facility] BUN 14 10 - 20 mg/dL 03/07/2025 2:[address] [facility] CREATININE, BLOOD 0.59(L) 0.60 - 1.00 mg/dL 03/07/2025 2:[address] [facility] BUN/CREATININE RATIO 24(H) 12 - 20 ratio 03/07/2025 2:05 PM [facility] TOTAL PROTEIN 7.5 6.0 - 8.0 g/dL 03/07/2025 2:[address] [facility] ALBUMIN 4.3 3.5 - 5.0 g/dL 03/07/2025 2:05 PM [facility] A/G RATIO 1.3 1.0 - 2.2 03/07/2025 2:05 PM [facility] CALCIUM 9.1 8.7 - 10.5 mg/dL 03/07/2025 2:05 PM [facility] T BILI 0.6 0.2 - 1.2 mg/dL 03/07/2025 2:[address] [facility] SGOT (AST) 24 <43 U/L 03/07/2025 2:05 PM [facility] SGPT (ALT) 18 <56 U/L 03/07/2025 2:05 PM [facility] ALKALINE PHOSPHATASE 63 40 - 150 U/L 03/07/2025 2:[address] [facility] GFR, ESTIMATED >60 >=60 03/07/2025 2:[address] [facility] Comment: Creatinine Clearance is the preferred criteria for selecting drug dose adjustments in renally impaired patients. The GFR is provided as additional pertinent clinical information. GFR is reported in mL/min/1.73 sq m. Calculation based on the Chronic Kidney Disease Epidemiology Collaboration (CKD- EPI) equation refit without adjustment for race. GFR, EST. >60 >=60 025 2:05 PM CDT [facility] GFR, EST. NONAFRICAN >60 >=60 03/07/2025 2:05 PM CDT [facility] Blood Venipuncture / Unknown 03/07/2025 1:34 PM CDT 03/07/2025 1:42 PM CDT us Diogo Ames PAC CHEMISTRY ORDERABLES Final Result [facility] [address] [place] [address] * EKG 12 LEAD (03/07/2025 1:09 PM CDT) Ventricular Rate 74 BPM EXTERNAL EKG Atrial Rate 74 BPM EXTERNAL EKG P-R Interval 116 ms EXTERNAL EKG QRS Duration 100 ms EXTERNAL EKG Q-T Duration 402 ms EXTERNAL EKG QTC CALCULATION 446 ms EXTERNAL EKG P [place] -16 degrees EXTERNAL EKG R [place] -22 degrees EXTERNAL EKG T [place] 23 degrees EXTERNAL EKG 03/07/2025 1:09 PM CDT Impressions EXTERNAL EKG - 03/09/2025 4:08 PM CDT Normal sinus rhythm Moderate voltage criteria for LVH, may be normal variant ( R in aVL , Solomon product ) Borderline ECG When compared with ECG of 25-APR-2023 14:04, No significant change was found Confirmed by Gerry Leonard ([id number]) on 03/09/2025 4:08:26 PM Narrative Procedure Note Gerry Leonard MD - 03/09/2025 IMPRESSION: Normal sinus rhythm Moderate voltage criteria for LVH, may be normal variant ( R in aVL ,Solomon product ) Borderline ECG When compared with ECG of 25-APR-2023 14:04, No significant change was found Confirmed by Gerry Leonard ([id number]) on 03/09/2025 4:08:26 PM Diogo Ames PAC IMG ECG ORDERABLES F inal Result EXTERNAL EKG * EKG SCAN (03/07/2025 12:00 AM CDT) 03/07/2025 Provider Scan IMG ECG ORDERABLES Final Result RESULTING AGENCY * [facility] BONE DENSITOMETRY AXIAL SKELETON (07/25/2023 9:31 AM SENIOR ATTORNEY) Anatomical Region Laterality Modality BODY N/A Computed Radiogr aphy 07/25/2023 9:45 AM SENIOR ATTORNEY Impressions 07/25/2023 9:48 AM SENIOR ATTORNEY IMPRESSION: Low Bone Mass. REFERENCE: Bone mineral density: Normal (T-score above or = -1.0) Low bone mass (T-score between -1.0 and -2.5) replaces the previously used term osteopenia Osteoporosis (T-score = or below -2.5) Medical evaluation for secondary causes of low bone mineral density may be appropriate. FRAX is a World Health Organization validated fracture risk assessment tool that calculates a person's 10 year probability of a major osteoporosis related fracture and hip fracture. According to the National Osteoporosis Foundation guidelines, postmenopausal women and men age 50 or older with low bone mass and a 10 year probability of a major osteoporosis related fracture = or greater than 20% or a 10 year probability of a hip fracture = or greater than 3% should be considered for treatment. For further information, including treatment recommendations, please refer to the 2019 ISCD Official Positions (http://www.iscd.org) and the NOF's Clinician's Guide to Prevention and Treatment of Osteoporosis (http://www.nof.org/professionals/clinical-guidelines) Narrative 07/25/2023 9:48 AM SENIOR ATTORNEY EXAM DESCRIPTION: [facility] BONE DENSITOMETRY AXIAL SKELETON REASON FOR STUDY: 63 y/o year old F with given history of: Osteoporosis, unspecified osteoporosis type, unspecified pathological fracture presence postmenopausal Tracing Lathe Set Up Operator/Model: Global Filmdemic (S/N [id number]) CLINICAL INFORMATION: Current height: 66 inches Maximum height: 66 inches Weight: 193 pounds Risk factors: Postmenopausal COMPARISON: 09/14/2019, 08/20/2013 FINDINGS: AP LUMBAR SPINE L1-L4: Total BMD is 1.215 g/cm2 T-score is 0.2 This is decreased in comparison to prior exam which is statistically significant. LEFT HIP: Total BMD is 0.887 g/cm2 T-score is -1.0 This is decreased in comparison to prior exam which is statistically significant. Femoral neck BMD is 0.758 g/cm2 T-score is -2.0 FRAX: 10 year risk for a major osteoporotic fracture is 10.2 %, 10 year risk for a hip fracture is 1.5 % THIS IS AN ELECTRONICALLY VERIFIED FINAL REPORT 07/25/2023 9:45 AM - Electronically signed by Fabio Marie M.D. MF: [id number] Report ID: [id number] Reading Location: [place] [address] Procedure Note Fabio Marie MD - 07/25/2023 EXAM DESCRIPTION: [facility] BONE DENSITOMETRY AXIAL SKELETON REASON FOR STUDY: 63 y/o year old F with given history of: Osteoporosis, unspecified osteoporosis type, unspecified pathological fracture presence postmenopausal Tracing Lathe Set Up Operator/Model: Global Filmdemic (S/N [id number]) CLINICAL INFORMATION: Current height: 66 inches Maximum height: 66 inches Weight: 193 pounds Risk factors: Postmenopausal COMPARISON: 09/14/2019, 08/20/2013 FINDINGS: AP LUMBAR SPINE L1-L4: Total BMD is 1.215 g/cm2 T-score is 0.2 This is decreased in comparison to prior exam which is statistically significant. LEFT HIP: Total BMD is 0.887 g/cm2 T-score is -1.0 This is decreased in comparison to prior exam which is statistically significant. Femoral neck BMD is 0.758 g/cm2 T-score is -2.0 FRAX: 10 year risk for a major osteoporotic fracture is 10.2 %, 10 year risk for a hip fracture is 1.5 % THIS IS AN ELECTRONICALLY VERIFIED FINAL REPORT 07/25/2023 9:45 AM - Electronically signed by Fabio Marie M.D. MF: KENNETH Report ID: [id number] Reading Location: [place] [address] IMPRESSION: Low Bone Mass. REFERENCE: Bone mineral density: Normal (T-score above or = -1.0) Low bone mass (T-score between -1.0 and -2.5) replaces the previously used term osteopenia Osteoporosis (T-score = or below -2.5) Medical evaluation for secondary causes of low bone mineral density may be appropriate. FRAX is a World Health Organization validated fracture risk assessment tool that calculates a person's 10 year probability of a major osteoporosis related fracture and hip fracture. According to the National Osteoporosis Foundation guidelines, postmenopausal women and men age 50 or older with low bone mass and a 10 year probability of a major osteoporosis related fracture = or greater than 20% or a 10 year probability of a hip fracture = or greater than 3% should be considered for treatment. For further information, including treatment recommendations, please refer to the 2019 ISCD Official Positions (http://www.iscd.org) and the NOF's Clinician's Guide to Prevention and Treatment of Osteoporosis (http://www.nof.org/professionals/clinical-guidelines) us Mendez Interiano MD IMG DEXA ORDERABLES Final Re sult * JEROME SCREENING BILATERAL DIGITAL W CAD W MAIRA (07/25/2023 9:12 AM SENIOR ATTORNEY) Anatomical Region Laterality Modality breast Bilateral Mammography 07/25/2023 9:40 AM SENIOR ATTORNEY Narrative 07/26/2023 9:24 AM SENIOR ATTORNEY - JEROME SCREENING BILATERAL DIGITAL W CAD W MAIRA BILATERAL DIGITAL SCREENING MAMMOGRAM 3D/2D WITH CAD WITH MEDIOLATERAL OBLIQUE CRANIOCAUDAL: 07/25/2023 The study was acquired using digital technology and interpreted from soft copy. Current study was also evaluated with ICAD version 7.2. 2D digital mammographic views, as well as 3D digital tomosynthesis were performed in the CC and MLO projections. CLINICAL: Routine screening. Patient has no complaints. She reports a weight loss of 15 pounds. No personal history of cancer. No family history of breast cancer. COMPARISONS: Comparison is made to exams dated: 09/14/2019, 09/03/2016, and 09/02/2015 [facility]. BREAST TISSUE:There are scattered fibroglandular densities in both breasts. FINDINGS: No significant masses, calcifications, or other findings are seen in either breast. There has been no significant interval change. IMPRESSION: BI-RAD 1 NEGATIVE There is no mammographic evidence of malignancy. A 1 year screening mammogram is recommended. A letter will be sent to the patient with these results. The patient will be entered into a reminder system with a target due date of 1 year for her next screening exam. Electronically signed by: Jocelin rendon/estella:07/25/2023 16:00:08 Breakdown Person(s): RT Samuel(R)(M), [facility] letter sent: Normal Exam Reading location: [facility] BI-RADS: 1 Negative Procedure Note Jocelin Rodriguez MD - 07/26/2023 - JEROME SCREENING BILATERAL DIGITAL W CAD W MAIRA BILATERAL DIGITAL SCREENING MAMMOGRAM 3D/2D WITH CAD WITH MEDIOLATERAL OBLIQUE CRANIOCAUDAL: 07/25/2023 The study was acquired using digital technology and interpreted from soft copy. Current study was also evaluated with ICAD version 7.2. 2D digital mammographic views, as well as 3D digital tomosynthesis were performed in the CC and MLO projections. CLINICAL: Routine screening. Patient has no complaints. She reports a weight loss of 15 pounds. No personal history of cancer. No family history of breast cancer. COMPARISONS: Comparison is made to exams dated: 09/14/2019, 09/03/2016, and 09/02/2015 [facility]. BREAST TISSUE:There are scattered fibroglandular densities in both breasts. FINDINGS: No significant masses, calcifications, or other findings are seen in either breast. There has been no significant interval change. IMPRESSION: BI-RAD 1 NEGATIVE There is no mammographic evidence of malignancy. A 1 year screening mammogram is recommended. A letter will be sent to the patient with these results. The patient will be entered into a reminder system with a target due date of 1 year for her next screening exam. Electronically signed by: Jocelin rendon/estella:07/25/2023 16:00:08 Breakdown Person(s): Rupinder Gr RT(R)(M), [facility] letter sent: Normal Exam Reading location: [facility] BI-RADS: 1 Negative us Joann Mac MD IMG MAMMO ORDERABLES F inal Result from Last 3 Months or Most Recently Relevant to Health Maintenance Insurance MEDICARE C AET[employer] Care Teams Clerk Manager Relationship Specialty [place] [address] [facility] [place] [address] PCP - General Internal Medicine 09/01/15
--- OUTSIDE RECORDS SUMMARY | 2025-03-14 10:09 | XMS_ITS | Patient Health Record ---
Author Organization [facility] Address [address] [address] Care Team Providers Care Amr Physician Name Role Phone LAXMI CAMACHO Unavailable [phone] Reason For Referral No Information Plan Of Treatment No Information Insurance Providers Payer Name Payer Address Payer Phone Subscriber Number Group Number Insured Name Patient Relationship to Insured Coverage Start Date Coverage End Date [facility] [address] [address] [place], [place] [id number] Ivelisse Rahman Self - patient is the insured 2
--- OUTSIDE RECORDS SUMMARY | 2025-03-14 10:09 | XMS_ITS | Referral Summary ---
Author Organization [facility] Address [address] [place] [address] Care Team Providers Care Erp Business Analyst Name Role Phone Mendez Astudillo MD Primary Care Provider + Encounters Date Type Department Care Team Description 12/24/2024 9:40 AM CDT Lab [facility] [address] [place] [address] from Last 3 Months Allergies No known active allergies Medications hydroCHLOROthia [...] polyps 04/26/2023 Encounter for screening colonoscopy 04/26/2023 Social History Tobacco Use Types Packs/Day Years Used Date Smoking Tobacco: Never Smokeless Tobacco: Never Tobacco Cessation:Counseling Given: Not Answered Personal Safety Answer Date Recorded Getting School Help Needed Not on file 06/06 Comments Unknown Sex and Gender Information Value Date Recorded Sex Assigned at Not on file 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 Testing performed by: [facility], [address] [place] [address], [place]., [address] Blood 12/24/2024 9:47 AM CDT 12/24/2024 5:51 PM CDT us Mendez Astudillo MD LAB BLOOD ORDERABLES Fin al Result JESUS WEBBER ([place]) 1 [facility] Department [place] [address] * Differential, auto (12/24/2024 9:47 AM CDT) Neutrophil abs 2.92 1.50 - 6.50 K/cumm Comment:Testing performed by : [facility], [address] [place] [address]., [address] Imm gran abs 0.06 0.00 - 0.10 K/cumm [facility] ([place]) Comment:Testing performed by : [facility], [address] [place] [address]., [address] Lymphocyte abs 2.14 0.80 - 3.30 K/cumm [facility] ([place]) Comment:Testing performed by : [facility], [address] [place] [address]., [address] Monocyte abs 0.56 0.20 - 0.80 K/cumm [facility] ([place]) Comment:Testing performed by : [facility], [address] [place] [address]., [address] Eosinophil abs 0.13 0.00 - 0.50 K/cumm [facility] ([place]) Comment:Testing performed by : [facility], [address] [place] [address]., [address] Basophil abs 0.02 0.00 - 0.10 K/cumm [facility] ([place]) Comment:Testing performed by : [facility], [address] [place] [address]., [address] Neutrophil pct 50.2 % [facility] ([place]) Comment: Interpretive Data Percent cell count reference ranges are not reported, since discordance with absolute values may lead to misinterpretation of CBC data. Current Interpretive Data was last revised on 2017. Testing performed by: [facility], [address] [place] [address]., [address] Imm gran pct 1.0 % [facility] ([place]) Comment: Interpretive Data Percent cell count reference ranges are not reported, since discordance with absolute values may lead to misinterpretation of CBC data. Current Interpretive Data was last revised on 2017. Testing performed by: [address] [address] Lymphocyte pct 36.7 % [facility] ([place]) Comment: Interpretive Data Percent cell count reference ranges are not reported, since discordance with absolute values may lead to misinterpretation of CBC data. Current Interpretive Data was last revised on 2017. Testing performed by: [address], [address] Monocyte pct 9.6 % [facility] ([place]) Comment: Interpretive Data Percent cell count reference ranges are not reported, since discordance with absolute values may lead to misinterpretation of CBC data. Current Interpretive Data was last revised on 2017. Testing performed by: [facility], [address] [place] [address]., [address] Eosinophil pct 2.2 % DAISY WEBBER ([place]) Comment: Interpretive Data Percent cell count reference ranges are not reported, since discordance with absolute values may lead to misinterpretation of CBC data. Current Interpretive Data was last revised on 2017. Testing performed by: [address] [address] Basophil pct 0.3 % JESUS WEBBER ([place]) Comment: Interpretive Data Percent cell count reference ranges are not reported, since discordance with absolute values may lead to misinterpretation of CBC data. Current Interpretive Data was last revised on 2017. Testing performed by: [address] [address] Blood 12/24/2024 9:47 AM CDT 12/24/2024 1:51 PM CDT Mendez Astudillo MD LAB BLOOD ORDERABLES Fin al Result JESUS WEBBER ([place]) 1 [facility] Department [place] [address] * (ABNORMAL) Urinalysis reflex to microscopic and culture Urine, clean voided (12/24/2024 9:47 AM CDT) Color, ur Yellow Yellow Comment:Testing performed by : [address] [address] Clarity, ur Clear Clear JESUS Natarajan ([place]) Comment:Testing performed by : [address] [address] Specific gravity, ur 1.011 1.003 - 1.030 JESUS WEBBER ([place]) Comment:Testing performed by : [address] [address] pH, urine 7.0 [facility] ([place]) Comment: Interpretive Data U rine pH is affected by diet, medications, systemic acid-base disturbances, and renal tubular function. pH may affect urinary stone formation. For example, urine pH below 6.0 may help reduce the tendency for calcium phosphate stones and pH greater than 6.0 may reduce the tendency for uric acid stone formation. Source: [facility] Current Interpretive Data was last revised on 2017 Testing performed by: [address], [address] Protein, ur ql Negative Negative [facility] ([place]) Comment:Testing performed by : [address], [address] Glucose, ur ql Negative Negative [facility] ([place]) Comment:Testing performed by : [address], [address] Ketones, ur Negative Negative [facility] ([place]) Comment:Testing performed by : [address], [address] Bilirubin, ur Negative Negative [facility] ([place]) Comment:Testing performed by : [address], [address] Blood, ur 2+(A) Negative [facility] ([place]) Comment:Testing performed by : [address], [address] Urobilinogen, ur <2.0 <2.0 mg/dL [facility] ([place]) Comment:Testing performed by : [address], [address] Nitrite, ur Negative Negative [facility] ([place]) Comment:Testing performed by : [address], [address] Leukocyte esterase, ur Negative Negative [facility] ([place]) Comment:Testing performed by : [address], [address] UA reflex comment Reflex to microscopic UA will be performed. [facility] ([place]) Comment:Testing performed by : [address], [address] Urine, clean voided 12/24/2024 9:47 AM CDT 12/24/2024 1:51 PM CDT us Mendez Astudillo MD LAB MICROBIOLOGY - GENER AL ORDERABLES Final Result [facility] ([place]) 1 [facility] Department [place] [address] * (ABNORMAL) CBC with auto differential (12/24/2024 9:47 AM CDT) WBC 5.83 3.80 - 9.90 K/cumm Comment:Testing performed by : [address], [address] Hgb 15.0 11.9 - 15.5 g/dL [facility] ([place]) Comment:Testing performed by : [address], [address] Hct 46.6(H) 35.6 - 45.5 % [facility] ([place]) Comment:Testing performed by : [address], [address] Plt 263 150 - 400 K/cumm [facility] ([place]) Comment:Testing performed by : [address], [address] MPV 10.5 9.1 - 12.3 fL [facility] ([place]) Comment:Testing performed by : [address], [address] RBC 5.20 3.90 - 5.20 M/cumm [facility] ([place]) Comment:Testing performed by : [address], [address] MCV 89.6 81.3 - 96.4 fL [facility] ([place]) Comment:Testing performed by : [address], [address] MCH 28.8 27.1 - 33.3 pg [facility] ([place]) Comment:Testing performed by : [address], [address] MCHC 32.2(L) 32.3 - 35.7 g/dL [facility] ([place]) Comment:Testing performed by : [address], [address] RDW CV 12.5 11.1 - 14.9 % JESUS WEBBER ([place]) Comment:Testing performed by : [facility], [address] [place] [address], [address] RDW SD 41.0 35.7 - 48.1 fL JESUS WEBBER ([place]) Comment:Testing performed by : [facility], [address] [place] [address]., [address] NRBC abs 0.00 0.00 - 0.01 K/cumm JESUS WEBBER ([place]) Comment:Testing performed by : [facility], [address] [place] [address], [address] Blood 12/24/2024 9:47 AM CDT 12/24/2024 1:51 PM CDT us Mendez Astudillo MD LAB BLOOD ORDERABLES Fin al Result LIDIAWON WEBBER ([place]) 1 [facility] Department [place] [address] * 1,25 Dihydroxycholecalciferol (12/24/2024 9:47 AM CDT) [facility] 1-25-di-OH Vit D 25 18 - 78 pg/mL [facility] Comment: ADDITIONAL INFORMATION This test was developed and its performance characteristics determined by [facility] in a manner consistent with CLIA requirements. This test has not been cleared or approved by the U.S. Food and Drug Administration. Test Performed by: [facility] - [address] [address] Compliance Clerk: Toña Lovelace Ph.D.; CLIA# [id number] Testing performed by: [address], [address] Blood 12/24/2024 9:47 AM CDT 12/24/2024 1:51 PM CDT us Mendez Astudillo MD LAB BLOOD ORDERABLES Fin al Result Performing Organization Address [facility] [[email or web address]] de Phone Number JESUS WEBBER ([place]) 1 [facility] Department [place] [address] [facility] * (ABNORMAL) Urinalysis, microscopic only (12/24/2024 9:47 AM CDT) WBC, ur 0-5 0 - 5 /HPF Comment:Testing performed by : [facility], [address] [place] [address]., [address] RBC, ur 21-50(A) 0 - 2 /HPF JESUS [facility] ([place]) Comment:Testing performed by : [facility], [address] [place] [address], [address] Epithelial cells, squamous, ur 1-5 0 - 5 /HPF JESUS [facility] ([place]) Comment:Testing performed by : [facility], [address] [place] [address], [address] Mucous, ur Present(A) JESUS Natarajan ([place]) Comment:Testing performed by : [facility], [address] [place] [address], [address] Culture Reflex Comment Reflex conditions for urine culture (WBC >10) not met. JESUS WEBBER ([place]) Comment:Testing performed by : [facility], [address] [place] [address], [address] Urine, clean voided 12/24/2024 9:47 AM CDT 12/24/2024 1:51 PM CDT Mendez Astudillo MD LAB URINE ORDERABLES Fin al Result Performing Organization Address [facility] [employer] de Phone Number JESUS WEBBER ([place]) 1 [facility] [place] [address] * TSH (12/24/2024 9:47 AM CDT) Thyroid Stimulating Hormone 2.29 0.30 - 4.20 mcIUnit/mL Comment:Testing performed by : [facility], [address] [place] [address], [address] Blood 12/24/2024 9:47 AM CDT 12/24/2024 1:51 PM CDT Mendez Astudillo MD LAB BLOOD ORDERABLES Fin al Result Performing Organization Address City/[facility]/ZIP Co de Phone Number JESUS WEBBER ([place]) 1 [facility] [place] [address] * Magnesium (12/24/2024 9:47 AM CDT) Magnesium 2.3 1.4 - 2.5 mg/dL Comment:Testing performed by : [facility], [address] [place] [address]., [address] Blood 12/24/2024 9:47 AM CDT 12/24/2024 1:51 PM CDT us Mendez Astudillo MD LAB BLOOD ORDERABLES Fin al Result Performing Organization Address [facility] Co de Phone Number JESUS WEBBER ([place]) 1 [facility] [place] [address] * (ABNORMAL) Lipid panel (12/24/2024 9:47 AM [...] last revised on 2018. Testing performed by: [facility], [address] [place] [address], [place]., [address] Triglycerides 93 <=149 mg/dL JESUS [facility] ([place]) Comment: Interpretive Data Ages < or [...] last revised on 2018. Testing performed by: [facility], [address] [place] [address]., [address] HDL 70 >=40 mg/dL JESUS WEBBER ([place]) [...] last revised on 2018. Testing performed by: [facility], [address] [place] [address]., [address] LDL, calculated 137(H) <=129 mg/dL JESUS WEBBER [...] last revised on 2024. Testing performed by: [facility], [address] [place] [address]., [address] Non-HDL Cholesterol 153 mg/dL JESUS WEBBER ([place]) [...] last revised on 2018. Testing performed by: [address] [address] Chol/HDL ratio 3 LIDIANE Marietta WEBBER ([place]) Comment:Testing performed by : [address] [address] Blood 12/24/2024 9:47 AM CDT 12/24/2024 1:51 PM CDT Mendez Astudillo MD LAB BLOOD ORDERABLES Fin al Result JESUS WEBBER ([place]) 1 [facility] Department [place] [address] * Comprehensive metabolic panel (12/24/2024 9:47 AM CDT) Sodium 142 135 - 145 mmol/L Comment:Testing performed by : [address] [address] Potassium, pl 4.0 3.3 - 4.9 mmol/L JESUS WEBBER ([place]) Comment:Testing performed by : [address] [address] Chloride 104 97 - 110 mmol/L JESUS WEBBER ([place]) Comment:Testing performed by : [address] [address] CO2 27 22 - 32 mmol/L [facility] ([place]) Comment:Testing performed by : [facility], [address] [place] [address]., [address] Anion gap 11 2 - 15 mmol/L [facility] ([place]) Comment:Testing performed by : [facility], [address] [place] [address]., [address] BUN 12 6 - 25 mg/dL [facility] ([place]) Comment:Testing performed by : [address] [address] Creatinine 0.60 0.60 - 1.10 mg/dL [facility] ([place]) Comment:Testing performed by : [address] [address] Glucose 88 70 - 199 mg/dL CERNER [...] was last revised 2022. Testing performed by: [facility], [address] [place] [address]., [address] Calcium 9.4 8.5 - 10.3 mg/dL [facility] ([place]) Comment:Testing performed by : [address] [address] Bilirubin, total 0.3 0.1 - 1.2 mg/dL [facility] ([place]) Comment:Testing performed by : [address] [address] Protein, pl 7.4 6.5 - 8.5 g/dL [facility] ([place]) Comment:Testing performed by : [address] [address] Albumin 4.3 3.5 - 5.0 g/dL [facility] ([place]) Comment:Testing performed by : [address] [address] Alk phos 62 40 - 130 Units/L [facility] ([place]) Comment:Testing performed by : [facility], [address] [place] [address], [address] ALT 20 7 - 45 Units/L [facility] ([place]) Comment:Testing performed by : [facility], [address] [place] [address], [address] AST 29 10 - 45 Units/L [facility] ([place]) Comment:Testing performed by : [facility], [address] [place] [address], [address] Blood 12/24/2024 9:47 AM CDT 12/24/2024 1:51 PM CDT us Mendez Astudillo MD LAB BLOOD ORDERABLES [facility] al Result JESUS WEBBER ([place]) 1 [facility] Department [place] [address] * COLONOSCOPY (06/03/2023 7:28 AM CDT) Anatomical Region Laterality Modality Other Narrative Procedure Note Arnel Lopez MD - 06/03/2023 7:28 AM CDT [facility] Patient Name: Ivelisse Rahman Procedure Date: 06/03/2023 7:28 AM Date of : 1960 Admit Type: Outpatient Age: 63 Gender: Female Attending MD: Arnel Lopez M.D. Room: [facility] ENDOSCOPY ROOM 2 Note Status: Finalized Patient [...] scope was passed under direct vision. TheColonoscope [id number] was introduced through the anus and advanced [...] history of colonic polyps CPT copyright 2020 [employer]. All rights reserved. The codes documented in this report are preliminary and upon medical practice manager reviewmay be revised to meet current compliance requirements. Recognized by the [employer] for promoting quality in endoscopy Arnel Lopez MD ENDOSCOPY PROCEDURES Final Re sult from Last 3 Months or Most Recently Relevant to Health Maintenance Insurance [facility] [employer]NA [facility] Advance Directives For more information, please contact: [phone] * Full Code (Latest Code Status on File) Date Activated Date Inactivated Comments 06/03/2023 7:30 AM 06/03/2023 1:39 PM * Full Code Date Activated Date Inactivated Comments 06/03/2023 7:30 AM 06/03/2023 7:30 AM Care Teams Erp Business Analyst Relationship Specialty [place] [address] [facility] [place] [address] PCP - General 02/25/17
--- OUTSIDE RECORDS SUMMARY | 2025-03-14 10:09 | XMS_ITS | Encounter Summary ---
Author Organization [facility] Healthcare Address [address] [place] [address] Care Team Providers Care Site Acquisition Manager Name Role Phone Mendez Astudillo MD Primary Care Provider + Encounter Details Date Type Department Care Team (Late st Contact Info) Description 07/26/2019 Orders Only [facility] Health Information Management [address] [place] [id number] [place] [id number] [facility] [place] [address] Social History Tobacco Use Types Packs/Day Years Used Date Smoking Tobacco: Never Assessed Comments Unknown Sex and Gender Information Value Date Recorded Sex Assigned at Not on file Legal Sex Female 2:51 AM [employer] Gender Identity Not on file Sexual Orientation Not on file documented as of this encounter Plan of Treatment Not on file documented as of this encounter Procedures Procedure Name Priority Date/Time Associated Diagnosis Comments CBC WITH AUTO DIFFERENTIAL Routine 12/31 6:25 AM CDT 1,25 DIHYDROXYCHOLECALCIFEROL Routine 6:25 AM CDT TSH Routine 01/01/2020 6:25 AM CDT LIPID PANEL Routine 01/01/2020 6:25 AM CDT COMPREHENSIVE METABOLIC PANEL Routine 6:25 AM CDT documented in this encounter Results * CBC with auto differential (01/01/2020 6:25 AM CDT) WBC 7.4 3.8 - 9.9 K/cumm [facility] ([place] Hgb 13.5 11.9 - 15.5 g/dL [facility] Hct 40.8 35.6 - 45.5 % [facility] Plt 280 150 - 400 K/cumm [facility] MPV 10.4 9.1 - 12.3 fL [facility] RBC 4.76 3.90 - 5.20 M/cumm [facility] MCV 85.7 81.3 - 96.4 fL [facility] MCH 28.4 27.1 - 33.3 pg [facility] MCHC 33.1 32.3 - 35.7 g/dL [facility] RDW CV 12.8 11.1 - 14.9 % [facility] RDW SD 39.9 35.7 - 48.1 fL [facility] NRBC abs 0.00 0.00 - 0.01 K/cumm [facility]) Blood specimen (specimen) 01/01/2020 6:25 AM CDT 01/01/2020 7:45 AM CDT us Mendez Astudillo MD LAB BLOOD ORDERABLES Fin al Result [facility] ([place]) [address] [facility] [place] [address] * 1,25 Dihydroxycholecalciferol (01/01/2020 6:25 AM CDT) 1-25-di-OH Vit D 66 18 - 78 pg/mL [facility] ([place]) Comment: ADDITIONAL INFORMATION This test was developed and its performance characteristics determined by [facility] in a manner consistent with CLIA requirements. This test has not been cleared or approved by the U.S. Food and Drug Administration. Test Performed by: [facility] [address] [place] [address] Abalone Sheller: Garret Lainez M.D. Ph.D.; CLIA# [id number] Blood specimen (specimen) 01/01/2020 6:25 AM CDT 01/01/2020 7:45 AM CDT Mendez Astudillo MD LAB BLOOD ORDERABLES Fin al Result Performing Organization Address City/[facility]/ZIP Co de Phone Number [facility] ([place]) [facility] [place] [address] * TSH (01/01/2020 6:25 AM CDT) Thyroid Stimulating Hormone 3.06 0.30 - 4.20 mcIUnit/mL [facility] ([place]) Blood specimen (specimen) 01/01/2020 6:25 AM CDT 01/01/2020 7:45 AM CDT Mendez Astudillo MD LAB BLOOD ORDERABLES Fin al Result Performing Organization Address [facility] Co de Phone Number [facility] ([place]) [address] [facility] [place] [address] * Lipid panel (01/01/2020 6:25 AM CDT) Cholesterol 194 30 - 199 mg/dL [facility] ([place]) Comment: Interpretive Data Ages < or = [...] Interpretive Data was last revised on 2018. Triglycerides 135 <=149 mg/dL [facility] ([place]) Comment: Interpretive Data Ages < or = [...] Interpretive Data was last revised on 2018. HDL 58 >=40 mg/dL [facility] ([place]) Comment: Interpretive Data Ages < or [...] Interpretive Data was last revised on 2018. LDL, calculated 109 <=129 mg/dL [facility] ([place]) Comment: Interpretive Data Ages < or = 19 years Acceptable: <110 mg/dL Borderline high: 110-129 mg/dL High: >or= 130 mg/dL Ages > or = 20 years Optimal: <100 mg/dL Near optimal: 100-129 mg/dL Borderline high: 130-159 mg/dL High: >160 mg/dL Literature References: 1. Expert Panel on Integrated Guidelines for Cardiovascular Health and Risk Reduction in Children and Adolescents. Pediatrics 2011;128:S213 2. NCEP Expert Panel. Circulation 2004;110:227 Current Interpretive Data was last revised on 2018. Non-HDL Cholesterol 136 mg/dL [facility] ([place]) Comment: Interpretive Data [...] Interpretive Data was last revised on 2018. Chol/HDL ratio 3 [facility] ([place]) Blood specimen (specimen) 01/01/2020 6:25 AM CDT 01/01/2020 7:45 AM CDT us Mendez Astudillo MD LAB BLOOD ORDERABLES Fin al Result [facility] ([place]) [address] [facility] [place] [address] * (ABNORMAL) Comprehensive metabolic panel (01/01/2020 6:25 AM CDT) Sodium 141 135 - 145 mmol/L [facility]) Potassium, pl 3.6 3.3 - 4.9 mmol/L [facility]) Chloride 103 97 - 110 mmol/L [facility]) CO2 25 22 - 32 mmol/L [facility]) Anion gap 13 2 - 15 mmol/L [facility]) BUN 21 8 - 25 mg/dL [facility]) Creatinine 0.58(L) 0.60 - 1.10 mg/dL [facility]) Glucose 90 70 - 199 mg/dL [facility] ([place]) [...] classification and Diagnosis of Diabetes Diabetes Care 2017;40 (Suppl. 1):S11. Current interpretive data was last revised 2017. Calcium 9.5 8.5 - 10.3 mg/dL [facility]) Bilirubin, total 0.5 0.1 - 1.2 mg/dL [facility] ([place]) Protein, pl 6.9 6.5 - 8.5 g/dL [facility]) Albumin 4.3 3.5 - 5.0 g/dL [facility]) Alk phos 67 40 - 130 Units/L [facility]) ALT 47(H) 7 - 45 Units/L [facility]) AST 30 10 - 45 Units/L [facility]) Blood specimen (specimen) 01/01/2020 6:25 AM CDT 01/01/2020 7:45 AM CDT us Mendez Astudillo MD LAB BLOOD ORDERABLES Fin al Result Performing Organization Address City/State/[facility] Co de Phone Number [facility] ([place] [address] [facility] [place] [address] documented in this encounter Visit Diagnoses Not on filedocumented in this encounter Care Teams Site Acquisition Manager Relationship Specialty [place] [id number] [place] [address] PCP - General 02/25/17 documented as of this encounter
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
== END 2025-03-14 11:25 | disposition home or self-care (01) ==
PROVIDERS: Emergency Provider Nurse Practitioner Family
DX: S93.601A Unspecified sprain of right foot, initial encounter (principal); W22.8XXA Striking against or struck by other objects, initial encounter
CPT/HCPCS: 73630; 99203; G0463